=== PATIENT | female | born 1960 | race Caucasian/White ===

== ENCOUNTER 2016-06-18 21:38 | Emergency (ER) | payer MEDICARE, MEDICAID ==
[2016-06-18 21:50] VITALS: TEMP 97.8; BMI 35.4
[2016-06-18] MEDS ORDERED: GI COCKTAIL 30 ML DOSE PO ONE (22:25)
--- NOTE | 2016-06-18 22:31 | EDPRACDOC ---
- General Information Chief Complaint: Blood Pressure (Problems) Stated Complaint: UNBEARABLE TASTE IN MOUTH NAUSEATED Time Seen by Provider: 06/18/16 22:27 Information Source: Patient Mode of Arrival: Car Home Medications: Home Medications Atenolol [Tenormin] 50 mg PO DAILY 10/05/15 Clonazepam [Klonopin] 1 mg PO BID PRN 10/05/15 Escitalopram Oxalate [Lexapro] 20 mg PO DAILY 10/05/15 Estradiol [Minivelle] 1 patch TOP WE 10/05/15 Fenofibrate Nanocrystallized [Fenofibrate] 145 mg PO DAILY 10/05/15 Fluticasone Propionate [Flonase] 2 spray NIKKO DAILY 10/05/15 Levothyroxine [Synthroid, Levoxyl] 175 mcg PO DAILY 10/05/15 Azithromycin [Zithromax] 0 mg PO DAILY #6 tablet 03/12/16 Hydrocodone Bit/Homatropine [Hycodan Syrup] 5 ml PO Q6 PRN #120 syrup 03/12/16 Lisinopril [Prinivil] 5 mg PO DAILY 03/12/16 Nystatin 5 ml PO Q6H #200 oral.susp 03/12/16 Omeprazole 20 mg PO DAILY 03/12/16 Allergies/Adverse Reactions: Allergies Allergy/AdvReac Type Severity Reaction Status Date / Time prednisone Allergy Intermediate INCREASED Verified 03/12/16 16:39 HEART RATE celecoxib [From Celebrex] AdvReac Intermediate NAUSEA AND Verified 03/12/16 16: 39 TACHYCARDIA meloxicam [From Mobic] AdvReac Intermediate Anxiety Verified 03/12/16 16:39 - History of Present Illness Onset: [employer] HPI: PT presents requesting a spit test. She has had a "bad" sour taste in her mouth for the last few months, for the most part is always present and worse at times. She also reports burning tongue discomfort and intermittent epigastric pain. She denies any new medications or known new exposures in this time frame. no diet changes. She only takes benzos QHS. She initially went to her PCP and was treated for possible thrush. She has never seen white plaques in her mouth. She is not diabetic. No h/o same. Currently no ABD pain. some nausea no emesis. symptoms seem somewhat worse tonight. She has been on google searching for causes of her symptoms and now is requesting a spit test. Location: tongue Context: unk Pain Quality: Reports: Burning Worsens: nothing Improves: nothing ED Past Medical History - History Reviewed Yes Nurses notes reviewed and agree except as marked - Patient Medical History Neurological History: Denies: Seizures Cardiac History: Reports: Hypertension Respiratory History: Denies: COPD GI/ History: Reports: Gastroesophageal Reflux Musculoskeletal History: Reports: Arthritis Psychological History: Reports: Depression, Anxiety Systemic History: Reports: Anemia (secondary to thyroid), Hypothyroidism. Denies: Cancer, Diabetes Surgical History: Reports: Hysterectomy, Hernia Surgery (with mesh) - Family Medical History Reports: Hypertension (MOTHER), Diabetes (DAD, SISTER), Cancer (SISTER). Denies : Cardiac Disorders - Social Medical History Smoking Status: Never smoker EDM Review of Systems - Review of Systems ROS Negative Except as Marked: Yes All systems reviewed and were negative except as marked - Physical Exam Constitutional: Alert (Awake), No apparent distress Oriented to: Time, Person, Place Last recorded Vital Signs: Last Vital Signs Temp 97.8 F 06/18/16 21:43 Pulse 72 06/18/16 22:03 Resp 18 06/18/16 22:03 BP 172/77 06/18/16 22:03 Pulse Ox 97 06/18/16 22:03 Oxygen Pulse Oxygen Saturation 97 O2 Device Room Air Oxygen Flow Rate Fraction of Inspired Oxygen ( FIO2) - HEENT Head: Normal ( normocephalic) Eye Exam: Normal (PERRL, EOMI, Sclera white) Oropharynx: Normal (Pharynx:Moist without exudate,Gums-no swelling), Other ( posterior pharynx clear. uvual midline.). negative: Exudate, Red, Tonsillar Hypertrophy, White Plaques Tympanic Membrane: Normal ENT EAC: Normal TMJ: Normal Nose: No Symptoms Reported (septum midline) Neck: Normal (FROM, trachea at midline) - Respiratory/Cardiovascular Respiratory: Normal - CTA (BBS clear to auscultation without adventitious sounds ) Cardiovascular: Normal (RRR without murmur, gallop or rub) - GI Auscultation: Normal (NABS) Palpation: Normal (Soft,No rebound or guarding, non distended) Tenderness: Non tender Lopes's Sign: Negative - Musculoskeletal Back: Normal (Non-Tender) Extremities: Normal (Normal tone, Pulses 2+ No cyanosis or edema, FROM) - Integumentary Skin: Normal, Warm, Dry Lymphatics: Normal (no adenopathy) - Neurologic Memory Impaired: Normal Motor Function: Normal (Normal tone, Pulses 2+ No cyanosis or edema, FROM) Cranial Nerve: Normal (CN II-X11 intact sensation, strength 5/5) Cerebellar: Normal Mood Description: Normal Perception: Normal - Re-evaluation Re-evaluation 1 Re-evaluation Time: 23:12 (improved after GI cocktail. plan d/c home Rx Pepcid with GI referral. Pt agrees to return precautions. ) Decision Time to Discharge: 23:12 - Departure Yes I personally saw and evaluated the patient. Disposition: Home Condition: Stable Final Diagnosis: Dyspepsia Instructions: Indigestion (ED) Referrals: Santa Machado PA [Primary Care Provider] - One Week Felipe Ramos MD [Staff Physician] - One Week Prescriptions: No Action Levothyroxine [Synthroid, Levoxyl] 175 mcg PO DAILY Fluticasone Propionate [Flonase] 2 spray NIKKO DAILY Fenofibrate Nanocrystallized [Fenofibrate] 145 mg PO DAILY Estradiol [Minivelle] 1 patch TOP WE Clonazepam [Klonopin] 1 mg PO BID PRN PRN Reason: Anxiety Escitalopram Oxalate [Lexapro] 20 mg PO DAILY Atenolol [Tenormin] 50 mg PO DAILY Omeprazole 20 mg PO DAILY Lisinopril [Prinivil] 5 mg PO DAILY Azithromycin [Zithromax] 0 mg PO DAILY #6 tablet Hydrocodone Bit/Homatropine [Hycodan Syrup] 5 ml PO Q6 PRN #120 syrup PRN Reason: Cough Nystatin 5 ml PO Q6H #200 oral.susp
[2016-06-18 23:32] VITALS: BP 168/76; PULSE 67
== END 2016-06-18 23:24 | disposition home or self-care (01) ==
LOC: ED 21:38
DX: R10.13 Epigastric pain (principal)
CPT/HCPCS: 99283; A9270; J3490